=== PATIENT | male | born 1955 | race Caucasian/White ===

== ENCOUNTER 2016-02-20 08:57 | Inpatient (IN) | payer OTHER ==
--- NOTE | 2016-02-15 15:14 | PCM.ANEPRE ---
Anesthesia Pre-Op Review Reason for Review: cardio/ pulm hx Anesthesia Recommendations: Proceed with Procedure Additional Comments 60 yo for total shoulder. Patient has hx of mild COPD, tachycardia induced cardiomyopathy, ZION. Last echo 08/2015 with EF 45%, improved from initial 15% before aflutter controlled. Seen by pulmonology 12/2015, noted to have stable respiratory status on his inhalers. Functional capacity appears adequate, with 6 miles of walking daily in summer, less recently. Patient is on Coumadin, held since 02/12, coreg. Uses 5L O2 at night with his CPAP. Had shoulder surgery here with [facility] and GA apparently without incident. Proceed with DOS eval. Chart Reviewed by: Marc Peters MD Feb 15, 2016 15:14
[2016-02-20] VITALS (11 sets, daily range): BP systolic 120–137; BP diastolic 67–84; PULSE 67–97; RESP 12–20; O2SAT 92–98
[~2016-02-20] VITALS: Ht 177.8 cm; Wt 91.3 kg
[2016-02-20] MEDS: Lactated Ringer's 1,000 ML IV SCH ×4 (05:00→13:44)
[~2016-02-20 08:57] MED LIST: ALBU18HF INH; ALBU2.5V4 INHALATION; APRE30TA2 PO; ASPI-973 PO; ATRINH INH; CARV25TA2 PO; CLOB15CR2 TP; CeFAZolin 2 Gm/50 mL D5W IV Premix IV ONE; DESO59LO TOP; LEVA1.2515 INHALATION; LEVA15HF5 IH; LEVO25TA5 PO; LISI10TA PO; OMEP20TA24 PO; SYMINH INHALATION; WARF4TAB6 PO; WARF6TAB6 PO
[2016-02-20 10:10] LABS: INR 1.15 ratio
--- NOTE | 2016-02-20 10:16 | PCM.HPANE ---
Patient Data Surgeon Admitting Provider: Attending Provider:Yo Escoto MD Primary Care Physician:Norbert Rothman MD Other Provider: Reason for Visit Right Shoulder Arthritis Ht/WT & BMI Height (Feet): 5 Height (Inches): 10 Weight (Kilograms): 91.3 Body Mass Index 28.00 Allergies Coded Allergies: carisoprodol (Unverified Allergy, Severe, rash, 05/16/14) cyclobenzaprine (Unverified Allergy, Severe, RASH, 05/16/14) metaxalone (Unverified Allergy, Severe, RASH, 05/16/14) Past Anesthesia History Anesthesia History: Denies:: Abnormal Airway, Anesthesia Reactions, Difficult Intubation, Malignant Hyperthermia Diabetes History Hx Diabetes?: No MRSA MRSA: No Medications Blood Thinner: Aspirin, Coumadin Hypertension Medication: Yes Home Meds Incl Beta Tory: Yes Date Beta Tory Taken: Feb 20, 2016 Time Beta Tory Taken: 0700 Reported Medications Omeprazole Magnesium (Prilosec Otc)20 Mg Tablet.dr20 Mg PO DAILY #1 PKG Ref 0 02/15/16 Warfarin Sodium 6 Mg Tablet6 Mg PO ,, Thu 30 Days 02/15/16 Warfarin Sodium 4 Mg Tablet4 Mg PO 4xweekly 30 Days Ref 0 02/15/16 Albuterol Sulfate (Ventolin HFA Inhaler)200 Puff/18 Gm Inhaler2 Puff INH Q4 PRN For Wheezing #1 INHALER Ref 0 02/15/16 Budesonide/Formoterol 160-4.5 mcg Inh (Symbicort 160-4.5 mcg Inh)120 Puff Inhaler2 Puff INHALATION BID #1 INHALER Ref 0 02/15/16 Apremilast (Otezla)30 Mg Rzkrrd68 Mg PO BID 02/15/16 Lisinopril 10 Mg Qqxslb37 Mg PO BID 30 Days Ref 0 02/15/16 Levothyroxine 25 Mcg Qbmrjn90 Mcg PO DAILY Ref 0 02/15/16 Desonide (Desonide Lotion)59 Ml Lotion1 Applic TOP BID PRN skin flares #1 BOTTLE Ref 0 02/15/16 Clobetasol Propionate 15 Gm Cream..g.15 Gm TP PRN skin irritation 02/15/16 Carvedilol 25 Mg Gbnquq77 Mg PO BID Ref 0 1/6/17 Ipratropium [place] (Atrovent HFA)200 Puff/12.9 Gm Inhaler2 Puff INH QID #1 INH Ref 0 02/15/16 Aspirin 81 Mg Ancybx31 Mg PO DAILY Ref 0 02/15/16 Albuterol Neb Soln 2.5 Mg/3 Ml Vial.neb2.5 Mg INHALATION TID Ref 0 02/15/16 Discontinued Reported Medications Levalbuterol Tartrate (Xopenex Hfa)15 Gm Hfa.aer.ad2 Puff IH Q6H PRN For Shortness of Breath #1 INH 02/15/16 Levalbuterol 1.25 Mg/3 Ml Vial.neb1.25 Mg INHALATION Q8H 02/15/16 Omeprazole Magnesium (Prilosec Otc)20 Mg Tablet.dr20 Mg PO DAILY #1 PKG Ref 0 05/16/14 Lisinopril 10 Mg Vxwkzk57 Mg PO BID 30 Days Ref 0 05/16/14 Amiodarone 200 Mg Qfuzvb650 Mg PO DAILY 30 Days Ref 0 05/16/14 Furosemide 20 Mg Tab20 Mg PO DAILY 30 Days Ref 0 05/16/14 Discontinued Scripts Doxycycline Monohyd 100 Mg Kbrsxu397 Mg PO BID #10 TABLET Ref 0 Prov:Chet Ugarte MD 05/19/14 Cefdinir 300 Mg Crbtexb300 Mg PO BID #10 CAPSULE Ref 0 Prov:Chet Ugarte MD 05/19/14 Prednisone (PredniSONE)10 Mg Tablet PO DIRECTED #18 TABLET Ref 0 Prednisone 10 mg tablet taper: Take 3 tabs po daily for 3 days; then take 2 tabs po daily for 3 days; then take 1 tab po daily for 3 days. Prov:Chet Ugarte MD 05/19/14 Fluticasone/Salmeterol (Advair 250-50 Diskus)60 Puff/Inh Disk1 Puff IH BID #1 DISK Ref 3 Prov:Chet Ugarte MD 05/19/14 Ipratropium/Albuterol Sulfate (Iprat-Albut 0.5-3(2.5) mg/3 mL Inhalant Soln)3 Ml Ampul.neb3 Ml IH QIDRT #120 NEB Ref 3 Prov:Chet Ugarte MD 05/19/14 Tiotropium [place] (Spiriva)18 Mcg Cap.w.dev18 Mcg IH DAILY #1 PKG Ref 3 Prov:Chet Ugarte MD 04/22/14 Albuterol HFA 8.5 Gm Hfa.aer.ad2 Puff IH Q4 PRN For Wheezing #1 INHALER Ref 3 Prov:Chet Ugarte MD 04/22/14 Aspirin 81 Mg Tablet.dr81 Mg PO DAILY #1 BOTTLE Ref 3 Prov:Chet Ugarte MD 04/22/14 Carvedilol (Coreg)6.25 Mg Tablet6.25 Mg PO BID #60 TABLET Ref 3 Prov:Chet Ugarte MD 04/22/14 Digoxin (Lanoxin)250 Mcg Grotbv867 Mcg PO DAILY #30 TABLET Ref 0 Prov:Chet Ugarte MD 04/22/14 History History of ENT Problems?: No HEENT History: Positive for:: Dysphagia (diff swallowing pills occas since starting Otezla) Denies:: Abnormal Airway Cataracts Difficult Intubation Glaucoma Hearing Problem Sinus Problem TMJ ("kind of" no formal work up) Hx of Heart Problems?: Yes Cardiovascular History: Positive for:: Hypertension Denies:: AICD Cardiac Surgery Chest Pain Congestive Heart Failure Heart Murmur Irregular Heartbeat Pacemaker Peripheral Vascular Thrombophlebitis Hx of Respiratory Problem?: Yes Respiratory History: Positive for:: Asthma Dyspnea (ADAMSON) Oxygen Administration (uses 5L at noc with CPAP) Pneumonia Use of C-PAP Machine Use of Inhalers / NEBS Denies:: COPD Chest Surgery Emphysema Hemoptysis Tuberculosis Hx Neurologic Problems?: No Neurological History: Denies:: CVA Headaches Multiple Sclerosis Parkinson's Disease Seizures TIA Hx of GI Problems?: Yes Gastrointestinal History: Positive for:: Gastroesphageal Reflux (takes prilosec OTC daily) Hepatitis (HX HEP C, treated not current dx) Denies:: Diverticulitis Gall Bladder Disease Gastrointestinal Bleeding Heartburn Hiatal Hernia Rectal Bleeding Hx of Problems?: No Genitourinary History: Denies:: Kidney Stones Urinary Tract Infection Male Hx: Denies:: Prostate Problems Scrotal Mass Testicular Surgery Skin History: Positive for:: History Skin Disorders? (psoriasis, no open plaques in surgical area) Denies:: Pressure Ulcers Hx Musculoskeletal Problems?: Yes Musculoskeletal History: Positive for:: Joint Replacement Musculoskeletal Trauma (right shoulder current admission problem) Osteoarthritis Denies:: Back Injury Fibromyalgia Systemic Lupus Hx of Psycho/Social Problems?: No Psycho Social History: Denies:: Anxiety Hx Depression Hx Surgeries?: Yes (APPY, LEFT ROTATOR CUFF 03/26, left rotator cuff repair) Hx Any Other Health Problems?: Yes Other History: Positive for:: Cancer (BCC head) Thyroid Disease Denies:: Endocrine Disease Hospitalization History Blood Transfusions: Positive for:: Accept Blood Products? Denies:: Blood Transfuse Reaction Blood Transfusions Hx Diabetes: No Hx Alcohol Use: NoHx Substance Use: No Smoking Status: Former Smoker Have You Smoked inLast 12 mo: No Stop/Bang Treated for Sleep Apnea?: No Do You Have a CPAP Machine?: No S-Snoring: Do You Snore Loudly: Yes T-Tired: feel tired, fatigued: Yes O-Obsered: Observed not breath: Yes P-Blood Pressure: treated: Yes B- Body Mass Index > 35 kg/m2: No A- Age over 50: Yes N- Neck Large Circumference: No G- Gender Male: Yes ZION Total Score: 6 ZION Risk Assessment: Low Risk, <3 Yes Risk Assessment Category Category 1A: Patient has history of documented sleep apnea, and HAS NOT received any narcotic, sedative or anesthesia administration during this stay. Category 1B: Patient has history of documented sleep apnea, and HAS received any narcotic , sedative or anesthesia administration during this stay Category 2: Patient has SUSPECTED Obstructive Sleep Apnea, and HAS received any narcotic , sedative or anesthesia administration during this stay. Category 3: Patient has SUSPECTED Obstructive Sleep Apnea and HAS NOT received narcotic, sedative or anesthesia administration during this stay. Category 4: Outpatient in Procedural Areas with known sleep apnea or who screen positive for High Risk via the STOP/BANG questionnaire. Exam Exam Vital Signs Vital Signs Date Time Temp Pulse Resp B/P Pulse Ox O2 Delivery O2 Flow Rate FiO2 02/20/16 09:39 36.1 97 20 128/71 97 Room Air General Appearance: Oriented X3 HEENT/AIRWAY: MP 2 Lungs: Normal Air Movement Heart: Regular Rate/Rhythm Meds/Labs/Diagnostics Admission Meds Current Medications Lactated Ringer's (Lr) 1,000 ml @ 120 mls/hr Q8H20M IV Last administered on t 09:56; Start 02/20/16 at 05:00; Stop 02/20/16 at 13:19 Labs Test 02/20/16 09:51 Plan Impression Patient chart reviewed, patient interviewed and anesthestic plan with risks, benefits, and alternatives discussed, and informed consent obtained. NPO Status: 0700 SIP OF WATER WITH MEDS ASA Physical Status: ASA3 Severe Disease Anesthetic Support Modalities: Arterial Line Anesthetic Plan: GA Bene/Risks/Altern/Consents: Yes HP Complete Prior to Induction: Yes Michi Jim MD Feb 20, 2016 10:16
[2016-02-20] MEDS ORDERED: Lactated Ringer's 500 ML IV PRN (11:21)
[2016-02-20] MEDS ORDERED: Lactated Ringer's 1,000 ML IV SCH (11:21)
[2016-02-20] MEDS ORDERED: Dexamethasone 4 mg/mL Inj IVPUSH PRN (11:25)
[2016-02-20] MEDS ORDERED: Ondansetron 2 mg/mL 2 mL Inj IVPUSH PRN (11:25)
[2016-02-20] MEDS ORDERED: EPHEDrine Sulfate 50 mg/mL Inj IVPUSH PRN (11:25)
[2016-02-20] MEDS ORDERED: MetoCLOpramide 5 mg/mL 2 mL Inj IVPUSH PRN (11:25)
[2016-02-20] MEDS ORDERED: Phenylephrine 10,000 mCg/mL Inj IVPUSH PRN (11:25)
[2016-02-20] MEDS ORDERED: fentaNYL-PF 50 mCg/mL 2 mL Inj IVPUSH PRN (11:25)
[2016-02-20] MEDS ORDERED: Albuterol-Ipratropium 3 mL Inhalation Solution NEB PRN (11:25)
[2016-02-20] MEDS ORDERED: Bacitracin 50,000 unit Inj IRRIGATION ONE (11:46)
[2016-02-20] MEDS ORDERED: Hip/Knee Infiltration Cocktail IM ONE ×7 (11:49)
[2016-02-20] MEDS ORDERED: Gentamicin 40 mg/mL 2 mL Inj INJ ONE (13:25)
[2016-02-20] MEDS ORDERED: Bupivacaine Liposome 1.3% 20 mL Inj INFILTRATE ONE (13:26)
[2016-02-20] MEDS ORDERED: Bupivacaine Liposome 1.3% 20 mL Inj ONE (13:28)
[2016-02-20] MEDS ORDERED: Ondansetron 2 mg/mL 2 mL Inj ONE (13:44)
[2016-02-20] MEDS ORDERED: Rocuronium 10 mg/mL 5 mL Inj ONE (13:44)
[2016-02-20] MEDS ORDERED: EPHEDrine/NS 5 mg/mL 5 mL Syringe ONE (13:44)
[2016-02-20] MEDS ORDERED: Propofol 10,000 mCg/mL 20 mL Inj ONE (13:44)
[2016-02-20] MEDS ORDERED: Albuterol HFA 60 Puff 8 Gm Inhaler INHALATION ONE (13:44)
[2016-02-20] MEDS ORDERED: Ketamine 10 mg/mL 20 mL Inj ONE (13:44)
[2016-02-20] MEDS ORDERED: MetoCLOpramide 5 mg/mL 2 mL Inj ONE (13:44)
[2016-02-20] MEDS ORDERED: Neostigmine 1 mg/mL 5 mL Inj ONE (13:44)
[2016-02-20] MEDS ORDERED: Glycopyrrolate 0.2 mg/mL 5 mL Inj ONE (13:44)
[2016-02-20] MEDS ORDERED: Dexamethasone 4 mg/mL Inj ONE (13:44)
[2016-02-20] MEDS ORDERED: fentaNYL-PF 50 mCg/mL 2 mL Inj ONE (13:44)
[2016-02-20] MEDS ORDERED: Phenylephrine/NS 100 mCg/mL 10 mL Syringe IVPUSH ONE (13:44)
[2016-02-20] MEDS ORDERED: Polyethylene Glycol (PEG) 17 Gm Powder PO PRN (13:45)
[2016-02-20] MEDS ORDERED: Magnesium Hydroxide 10 mL Oral Concentration PO PRN (13:45)
[2016-02-20] MEDS ORDERED: Sodium Biphos-Phos 133 mL Enema RECTAL PRN (13:45)
[2016-02-20] MEDS ORDERED: Ketorolac 15 mg/mL Inj IVPUSH PRN (13:45)
--- NOTE | 2016-02-20 14:00 | PCM.ORTHOP ---
Orthopedic Operative Report Date of Service: Feb 20, 2016 Pre Operative Diagnosis Right shoulder pseudoparalysis, osteoarthritis Post Operative Diagnosis Same Procedure Right shoulder reverse total shoulder arthroplasty, biceps tenodesis Surgeon Surgeon: Yo Escoto MD Assistants: Dayo Rai Indication for Procedure Right shoulder arthritis, pseudoparalysis Findings Moderate glenohumeral joint arthritis, massive rotator cuff tear Details of Procedure Implant:[employer] Reverse fracture system: 11 CaP coated humeral stem, medium glenoid baseplate, 39+6 humeral insert, size medium 39 mm glenosphere, central non-locking screw size 6.5 x 30 mm, peripheral locking screw 36 mm, peripheral locking screw 36 mm Patient Status: Patient was extubated and taken to recovery room in stable condition. Indications: Dexter Vuong is a 60-year-old right hand dominant s/p shoulder pain with pseudoparalysis and glenohumeral arthritis. The patient was offered conservative treatments versus surgical intervention given the severity of the injury and the patient opted for surgery. A clear explanation was given to the patient regarding the condition present, and the available conservative and surgical options. It was emphasized that the risks and benefits of surgery include but are not limited to infection, wound healing problems, damage to adjacent structures such as nerves, blood vessels and tendons, intermediate project manager disability and pain, arthritis, hypersensitivity, deep vein thrombosis, pulmonary embolism, broken hardware, failure of surgery, need for further procedures at time of surgery or later, cast related problems, loss of limb or life. The patient was given an explanation and the patient voiced understanding of what to expect after the procedure or surgery, the limitations in activities of daily living, the likely duration for post operative recovery and the instructions that are to be followed. At the end the patient was invited to seek clarification or ask further questions but there were none. The patient voiced understanding of the entire consultation. Description of Procedure: Patient was taken to operating room and transferred to operating table in supine position. Time out was performed with both anesthesia and orthopaedics faculty present to confirm details of case to be performed. After time out performed, patient placed under general anesthesia and endotracheal tube secured into place. Once endotracheal tube secured, the patient was placed into the modified beach-chair position at about 40 degrees of flexion. Patient position was again checked to ensure all bony prominences adequately padded. The right arm was prepped and draped in the usual sterile fashion to the level of the neck. A standard deltopectoral incision was made beginning immediately above the coracoid process and extending distally and laterally. The deltoid muscle was split through the interval being carefully not to release any deltoid along the clavicle or humerus. The proximal one-third of the pectoralis major muscle was incised off the humerus for better exposure. The supraspinatus and infraspinatus muscles were intact and still attached to the fractured greater tuberosity. The subscapularis was intact and also still attached to the fractured lesser tiberosity. It was incised through the tendinous portion just medial to the lesser tuberosity and tagged with 2-0 Fiberwire. The arm was externally rotated to expose the humeral head while the anterior humeral circumflex vessels ("3 sisters") were identified, ligated and then cut protecting the axillary nerve throughout inferior and medial to the vessels. The long head of the biceps was identified along the bicipital groove, incised at its origin and tagged for later tenodesis to the pectoralis major A balloon pilot hole was then made with a 4 mm drill through the humeral head along the axis of the humeral shaft just lateral to the head's articular surface and just posterior to the bicipital groove. The 6 mm trochar pointed reamer was then inserted with continued circumferential reaming in 1 mm increments until light cortical contact was achieved with the 11 mm reamer. The intramedullary resection guide was assembled and the version control evelin was placed to allow for 30 degrees retroversion. The neck cut was verified with a bat wing. Two threaded Steinmann pins were placed in the resection guide to secure the block to bone and the reamer and guide boom were removed prior to resecting the humeral head with the oscillating saw. We started broaching with the 8 mm broach and ended with the 11 mm broach which solidly fit in the canal and fully seated on the humerus. The broach cover was then used to protect the humerus while attention was turned to the glenoid. Any remaining labrum was removed from the glenoid along with surrounding osteophytes. The glenoid sizer was centered on the glenoid and a 3.2 mm Steinmann pin was inserted with a 10 degree inferior tilt with solid bone purchase. The glenoid was then reamed with the cannulated base plate reamer over the top of the Steinmann pin until a small bone shelf was evident circumferentially. The cannulated trial glenoid baseplate was placed and fully seated. The glenoid baseplate implant was impacted and fully seated. The 6.5 mm central screw was then inserted following removal of the Steinmann with good compression. The four surrounding peripheral screws were then drilled with a 2.7 mm drill through the threaded locking guides and then placed. The glenosphere trial was placed and tested with a good fit. The 39 mm glenosphere implant was then tamped in place with appropriate offset. The standard humeral tray/bearing were placed and a trial reduction was performed. The patient achieved 80 degrees of external/internal rotation, 110 degrees of abduction, 45 degrees extension and 120 degrees of forward flexion with complete stability. The trail components were removed and the wound was copiously irrigated with 3 liters of normal saline. The stem was inserted followed by impaction of the humeral tray/bearing. The implant was reduced and once again range of motion was found to be 80 degrees of external/internal rotation, 110 degrees of abduction, 45 degrees extension and 120 degrees of forward flexion with complete stability. The wound was again irrigated. The subscapularis was repaired with drill holes in the humerus prior to implantation of the stem with #2 Fiberwire through previously made bone tunnels. The long head of biceps was tenodesed to the pectoralis major. The deltoid interval was closed with 0 vicryl followed by 2-0 vicryl subcutaneous closure and then monocryl stitches for the skin. A drain was placed as well as transexamic acid and a local anesthetic cocktail into the skin. Sterile dressings were applied along with a shoulder immobilizer and abduction pillow. The patient was then awoken from anesthesia and extubated, his neurovascular status was intact when checked in PACU. Pt tolerated procedure well and there was no complications. Grafts, Implants: Grafts-See Implant Record, Implants-See Implant Record Complications There were no periprocedural complications identified. Condition Stable Anesthetic Administered: GA Catheters: None Output, Estimated Blood Loss: 200 Blood Admin during surgery: No Surgical Cast or Splint: Shoulder Immobilizer Surgical Specimen Removed: No Specimen sent to Pathology: No copies to: Yo Escoto MD, Christopher L MD Feb 20, 2016 14:00
[2016-02-20] MEDS ORDERED: fentaNYL-PF 50 mCg/mL 2 mL Inj IVPUSH ONE (14:25)
[2016-02-20] MEDS: HYDROmorphone 1 mg/mL Inj IVPUSH PRN ×2 (14:31→14:59)
--- NOTE | 2016-02-20 15:21 | DRSVH ---
PROCEDURE: X-RAY RIGHT SHOULDER, MINIMUM TWO VIEWS ([id number]) INDICATIONS: s/p right reverse TSA TECHNIQUE: 3 views of the shoulder were acquired. COMPARISON: [facility], CR, XR SHOULDER 4 VW RT, 07/05/2015, 8:19. FINDINGS: Bones: Postsurgical changes compatible with right shoulder reverse total arthroplasty noted. No suspi cious bony lesions. Visualized ribs appear intact. Soft tissues: No suspicious soft tissue calcifications. IMPRESSION: Expected postsurgical change for right shoulder reverse total arthroplasty. Dictated by: Saima Garcia MD, PhD on 02/20/2016 at 15:19 Approved by: Saima Garcia MD, PhD on 02/20/2016 at 15:19
[2016-02-20] MEDS: CeFAZolin Inj 2 GM in IV Premix 1 EACH IV SCH (16:26)
[2016-02-20] MEDS ORDERED: Gentamicin 40 mg/mL 2 mL Inj IRRIGATION ONE (16:33)
--- NOTE | 2016-02-20 16:55 | PCM.ANEP1 ---
Post Anesthesia Phase 1 PACU Phase 1 Assessment Date of Service: Feb 20, 2016 Vital Signs Vital Signs Date Time Temp Pulse Resp B/P Pulse Ox O2 Delivery O2 Flow Rate FiO2 02/20/16 16:06 Supplement Oxygen 02/20/16 15:55 36.8 68 20 128/81 95 Nasal Cannula 1.00 02/20/16 15:20 80 12 121/71 94 Nasal Cannula 1 02/20/16 15:05 72 12 132/77 93 Nasal Cannula 1 02/20/16 14:50 36.7 68 15 125/74 94 Nasal Cannula 1 02/20/16 14:35 71 13 127/71 92 Room Air 02/20/16 14:20 70 13 137/77 98 Simple Mask 9 02/20/16 14:15 68 15 120/84 98 Simple Mask 9 02/20/16 14:10 70 15 125/71 98 Simple Mask 9 02/20/16 14:07 36.4 67 16 127/74 98 Simple Mask 9 02/20/16 09:39 36.1 97 20 128/71 97 Room Air Anesthetic Administered: GA Level of Alertness: Awake, talking BRADY's with Equal Strength: Yes Pain: Yes Lungs: Normal Air Movement Michi Jim MD Feb 20, 2016 16:55
--- NOTE | 2016-02-20 16:55 | PCM.ANEP2 ---
Post Anesthesia Evaluation ASA/CMS Post Anesthesia VS in Patient's Normal Range?: Yes Resp Stable; Airway Patent?: Yes CV Function & Hydration Stable: Yes Mental Status Recovered?: Yes Pain control Satisfactory?: Yes N/V Control Satisfactory?: Yes Michi Jim MD Feb 20, 2016 16:55
--- NOTE | 2016-02-20 17:35 | NUR ---
POSTOP Pt to floor in bed. Able to talk and answer questions. Taking a full liquid diet, with advance to general in am. Rt arm wrapped in bulky dressing and in sling. Pain rated at a 6/10. Cpap checked by RT with intent to bleed 5L oxygen in while sleeping. Scd's on. Using urinal.
[2016-02-20] MEDS: Senna-Docusate 8.6-50 mg Tablet PO SCH (20:24)
[2016-02-20] MEDS: HYDROcodone-APAP 5-325 mg Tablet PO PRN (20:24)
[2016-02-21 01:07] VITALS: BP 134/70; PULSE 95; RESP 20; O2SAT 95
[2016-02-21] MEDS: CeFAZolin Inj 2 GM in IV Premix 1 EACH IV SCH (01:07)
[2016-02-21] MEDS: HYDROcodone-APAP 5-325 mg Tablet PO PRN ×3 (01:09→09:10)
[2016-02-21] MEDS: Lactated Ringer's 1,000 ML IV SCH (01:30)
[2016-02-21 04:58] VITALS: BP 124/80; PULSE 87; RESP 18; O2SAT 97
[2016-02-21] MEDS ORDERED: Bupivacaine Liposome 1.3% 20 mL Inj INFILTRATE ONE (06:00)
[2016-02-21 06:42] LABS: BASOPHILS % (AUTO) 0.1 % (0-3); EOSINOPHILS % (AUTO) 0 % (0-5); MONOCYTES % (AUTO) 16.2 % (4-12); Mean Corpuscular Hemoglobin 33.2 pg (27.0-35.0); Mean Corpuscular Volume 96.6 fL (81-100); NEUTROPHILS % (AUTO) 74.8 % (40-74); Platelet Count 243 bil/L (150-400)
--- NOTE | 2016-02-21 06:46 | NUR ---
Pain Initially denied pain but later c/o 8/10 shoulder pain. Prn norco and ice provided and effective. Currently resting without any complaints.
--- NOTE | 2016-02-21 07:12 | NUR ---
TWIN TWIN output 260ml from arrival to floor until midnight. Per provider communication order notified. TWIN clamped for an hour and unclamped with another 45ml output noted remainder of shift.
[2016-02-21] MEDS: Senna-Docusate 8.6-50 mg Tablet PO SCH (09:09)
[2016-02-21] MEDS ORDERED: OTEZLA 30 MG PO SCH (09:57)
[2016-02-21] MEDS ORDERED: Pantoprazole 40 mg ER24 Tablet PO SCH (09:58)
[2016-02-21] MEDS ORDERED: Albuterol 2.5 mg/3 mL Inhalation Solution NEB PRN (10:00)
--- NOTE | 2016-02-21 10:18 | PCM.PNORTH ---
Subjective Date of Service: Feb 21, 2016 Visit Information: Reason for Visit Right Shoulder Arthritis Surgery/Surgery Date R TS 02/20/16 Post-Op Day # 1 Date of Admission: Feb 20, 2016 at 13:43 Hospital Day # Subjective Patient states he is having discomfort but it is tolerable. Patient states he has "been through this before" and understands the process. and patient had adequate time to ask questions and all concerns were addressed. Patient's home med list has been entered this morning. Postop General: No Complaints, No Shortness of Breath, No Chest Pain Pain Management: PO, IV Push Objective Exam Objective Patient laying in bed, sling is in place. Vital Signs and I/O Vital Sign - Last Date Time Temp Pulse Resp B/P Pulse Ox O2 Delivery O2 Flow Rate FiO2 02/21/16 07:45 Supplement Oxygen 02/21/16 04:58 37.0 87 18 124/80 97 5.00 Intake and Output 02/20/16 02/20/16 02/21/16 Cumulative From/Thru 15:00 23:00 07:00 02/15/16 11:05 - 02/21/16 06:14 Intake Total 800 ml 1152 ml 2008 ml 3960 ml Output Total 350 ml 290 ml 1855 ml 2495 ml Balance 450 ml 862 ml 153 ml 1465 ml Intake Oral 1000 ml 1000 ml 2000 ml IV Total 800 ml 152 ml 1008 ml 1960 ml Output Urine Total 200 ml 1650 ml 1850 ml Drainage Total 90 ml 205 ml 295 ml Estimated Blood Loss 350 ml 350 ml # Voids 1 1 # Bowel Movements 0 0 Lab & Micro Results Laboratory Tests Test 02/21/16 06:00 White Blood Count 16.8th/mm3 (3.8-10.1) Red Blood Count 3.19mil/mm3 (4.40-5.80) Hemoglobin 10.6g/dL (13.8-17.2) Hematocrit 30.8% (41.0-50.0) Mean Corpuscular Volume 96.6fL (81-100) Mean Corpuscular Hemoglobin 33.2pg (27.0-35.0) Mean Corpuscular Hemoglobin Concent 34.4% (32.0-37.0) Red Cell Distribution Width 11.8% (12.3-15.4) Platelet Count 243bil/L (150-400) Neutrophils (%) (Auto) 74.8% (40-74) Lymphocytes (%) (Auto) 8.7% (14-46) Monocytes (%) (Auto) 16.2% (4-12) Eosinophils (%) (Auto) 0% (0-5) Basophils (%) (Auto) 0.1% (0-3) Result Diagram: 02/21/16 0600 General Appearance: Alert, Oriented X3, Cooperative Extremities: Distal Pulses Palpable, Warm, No Compartment Syndrom Noted Postop Sensory Motor: Distal Motor Intact, Movement in Fingers, Distal Sensation Intact, NVI Distally SURGICAL WOUND : Wound Location/Description Perioperative dressings clean dry and intact. Drain was removed. Sling in place. Drain Location Body Site: Shoulder Activity: Activity per PT (ROM to elbow and wrist only, no ROM to shoulder) Catheters: None Assessment & Plan Impression Postoperative day #1 right reverse total shoulder arthroplasty Problems: Plan Weightbearing: Patient is nonweightbearing with the right upper extremity. Patient will remain in sling at all times except when doing range of motion to the elbow. DVT prophylaxis: Patient will be bridging with Lovenox 40 mg and his usual dose of warfarin Physical therapy for transfers, progressive ambulation, strengthening Wound care: Perioperative dressing will remain in place for 2 weeks unless saturated. Please provide patient with extra dressings to take home in case dressings become soiled. Analgesia: Patient was given a prescription for [place] 5/325. Discharge plan: Discharge home today. Follow-up plan: In 2 weeks at [facility] with BETTY for wound check and at [address] Escoto with x-rays VTE Prophylaxis: Sub-Q Enoxaparin Jillian Welsh PA-C Feb 21, 2016 10:18
[2016-02-21] MEDS ORDERED: LOV40 SUBQ (10:23)
[2016-02-21] MEDS ORDERED: HYDR-4003 PO (10:23)
[2016-02-21] MEDS ORDERED: DOCU-41 PO (10:23)
--- NOTE | 2016-02-21 10:25 | PCM.DIORTH ---
Ortho Discharge Instruction Date of Service: Feb 21, 2016 Dates of Hospitalization Date of Hospital Admission Feb 20, 2016 at 13:43 Providers Admitting Physician: Yo Escoto MD Primary Care Physician: Norbert Rothman MD Attending Physician: Yo Escoto MD Diet Discharge Diet: No restrictions Activity Discharge Activity-General: Try not to overdue, Be up and about, Ice incision 3 -5 time/day for 20min Right Lower Extremity: Non-weight Bearing Dressing and Incisional Care Discharge Dressing Care: Keep dressing clean, dry & intact Discharge Hygiene: May shower (Cover dressings, do not get them wet), DO NOT soak incision under water Additional Instructions Discharge Instructions Weightbearing: Patient is nonweightbearing with the right upper extremity. Patient will remain in sling at all times except when doing range of motion to the elbow. DVT prophylaxis: Patient will be bridging with Lovenox 40 mg and his usual dose of warfarin Physical therapy for transfers, progressive ambulation, strengthening Wound care: Perioperative dressing will remain in place for 2 weeks unless saturated. You will receive extra dressings to take home in case dressings become soiled. Shower instructions: Keep dressing covered while bathing. Do not get dressing wet. If dressing becomes wet, immediately change it. Analgesia: Patient was given a prescription for [place] 5/325. Follow-up plan: In 2 weeks at [facility] with BETTY for wound check and at [address] Escoto with x-rays Jillian Welsh PA-C Feb 21, 2016 10:25
--- NOTE | 2016-02-21 10:29 | PCM.DC.ORT ---
Discharge Summary Date of Service: Feb 21, 2016 Date of Hospital Admission: Feb 20, 2016 at 13:43 Date of Surgery: Feb 20, 2016 Date of Discharge: Feb 21, 2016 Reason for Hospitalization: Right shoulder arthritis Procedures Performed: Right reverse total shoulder arthroplasty Hospital Course: The patient was admitted to the hospital on 02/20/2016 and underwent the above procedure. Antibiotic prophylaxis consisting of Ancef and vancomycin. The surgeon was Dr. Escoto. Patient tolerated the procedure well and was transferred to recovery room in stable condition. TWIN drain was discontinued on postop day 1. Patient had occupational therapy to work on ambulation and transfers. Nonweightbearing. Pain was managed with Dilaudid, Percocet, Vistaril, Toradol. DVT prophylaxis: Lovenox 40 mg subcutaneous bridging with warfarin and SCDs. Hospital course was uncomplicated. Patient was able to perform adequately enough to be discharged home on postop day 1. Follow-up: at [facility] 2 weeks postop for wound check and at [address] Escoto with x-ray. Diagnosis at Time of Discharge Status post right reverse total shoulder arthroplasty Problems: Disposition: Stable, discharged to home Discharge Instructions: Weightbearing: Patient is nonweightbearing with the right upper extremity. Patient will remain in sling at all times except when doing range of motion to the elbow. DVT prophylaxis: Patient will be bridging with Lovenox 40 mg and his usual dose of warfarin Physical therapy for transfers, progressive ambulation, strengthening Wound care: Perioperative dressing will remain in place for 2 weeks unless saturated. You will receive extra dressings to take home in case dressings become soiled. Shower instructions: Keep dressing covered while bathing. Do not get dressing wet. If dressing becomes wet, immediately change it. Analgesia: Patient was given a prescription for Kulm 5/325. Follow-up plan: In 2 weeks at [facility] with PA for wound check and at [address] Escoto with x-rays Albuterol Neb Soln (Albuterol Neb Soln) 2.5 Mg/3 Ml Vial.neb 2.5 MG INHALATION TID Albuterol Sulfate (Ventolin HFA Inhaler) 200 Puff/18 Gm Inhaler 2 PUFF INH Q4 PRN PRN For Wheezing Apremilast (Otezla) 30 Mg Tablet 30 MG PO BID Budesonide/Formoterol 160-4.5 mcg Inh (Symbicort 160-4.5 mcg Inh) 120 Puff Inhaler 2 PUFF INHALATION BID Carvedilol (Carvedilol) 25 Mg Tablet 25 MG PO BID Clobetasol Propionate (Clobetasol Propionate) 15 Gm Cream..g. 15 GM TP PRN skin irritation Desonide (Desonide Lotion) 59 Ml Lotion 1 APPLIC TOP BID PRN PRN skin flares Docusate Sodium (Colace) 100 Mg Capsule 100 MG PO BID PRN PRN For Constipation Enoxaparin (Lovenox) 40 Mg/0.4 Ml Syringe 40 MG SUBQ DAILY Hydrocodone-Acetaminophen 5-325 mg (Hydrocodone-Acetaminophen 5-325 mg) 1 Each Tablet 1 TABLET PO Q6H PRN PRN For Pain Ipratropium [place] (Atrovent HFA) 200 Puff/12.9 Gm Inhaler 2 PUFF INH QID Levothyroxine (Levothyroxine) 25 Mcg Tablet 25 MCG PO DAILY Lisinopril (Lisinopril) 10 Mg Tablet 10 MG PO BID Omeprazole Magnesium (Prilosec Otc) 20 Mg Tablet.dr 20 MG PO DAILY Warfarin Sodium (Warfarin Sodium) 4 Mg Tablet 4 MG PO 4xweekly Warfarin Sodium (Warfarin Sodium) 6 Mg Tablet 6 MG PO Delgado Rebolledo Sat Shepherd, Brittany N PA-C Feb 21, 2016 10:29
--- NOTE | 2016-02-21 11:04 | NUR ---
Social Work Discharge SW acknowledged order for discharge. SW met with patient at bedside to discuss discharge plan. Patient is a 60 year old male admitted on 02/20/16 for right sholder arthritis. Patient payer as [facility]. Patient PCP as MD Rothman. Patient states residing with in [facility]. Patient states pharmacy of choice as [facility]. Patient has no HHC, SNF, or AD at this time. Patient denied completion of AD. Patient has a walker, CPAP, and nebulizer at home. Patient states being independent with needs and to provide transport home. SW spoke to therapist who states home, no needs. Patient and denied need for HHC services at this time. SW to follow. PLAN: Home with , via POV. No anticipated discharge needs Tiffany WILL
--- NOTE | 2016-02-21 12:06 | NUR ---
Evaluation completed. Please go to "Notes" then click on "Assessments and Notes" (bottom left corner of screen). Then select appropriate discipline tab on top of screen.
--- NOTE | 2016-02-21 14:24 | NUR ---
Discharge Orders for discharge received. The patient was made aware of the plan to discharge and was agreeable to go. The patient was given his scripts and information regarding his diagnosis and treatment, signs and symptoms to be aware of, medications, follow up directions and instructions regarding his dressing. The patient signified understanding of this information and his asymptomatic IV was removed intact. The patient gathered his belongings and was dressed in his own clothing. The patient then walked to the main entrance and entered a private vehicle. At the time of discharge the patient was alert and oriented, with no complaints of out of control pain or nausea. Surgical dressing clean, dry and intact.
[2016-02-21] MEDS ORDERED: Albuterol 2.5 mg/3 mL Inhalation Solution NEB SCH (14:30)
== END 2016-02-21 12:28 | disposition home or self-care (01) | DRG 315 ==
LOC: SAS 08:57 → OSC 13:43
PROVIDERS: ADMIT Orthopaedic Surgery; ATTEND Orthopaedic Surgery
PROC: 0RRJ00Z Replacement of Right Shoulder Joint with Reverse Ball and Socket Synthetic Substitute, Open Approach (ICD-10-PCS; principal; 2016-02-20 11:15)
DX: M75.121 Complete rotator cuff tear or rupture of right shoulder, not specified as traumatic (principal); I42.9 Cardiomyopathy, unspecified; Z99.81 Dependence on supplemental oxygen; M19.011 Primary osteoarthritis, right shoulder; M75.21 Bicipital tendinitis, right shoulder; Z79.51 Long term (current) use of inhaled steroids; J44.9 Chronic obstructive pulmonary disease, unspecified; F17.210 Nicotine dependence, cigarettes, uncomplicated; K21.9 Gastro-esophageal reflux disease without esophagitis; I10 Essential (primary) hypertension

== ENCOUNTER 2016-03-08 16:34 | Emergency (ER) | payer OTHER ==
[~2016-03-08] VITALS: Ht 177.8 cm; Wt 93.2 kg
[~2016-03-08 16:34] MED LIST changes: -ASPI-973 PO; -CeFAZolin 2 Gm/50 mL D5W IV Premix IV ONE; +DOCU-41 PO; +HYDR-4003 PO; -LEVA1.2515 INHALATION; -LEVA15HF5 IH; +LOV40 SUBQ
[2016-03-08 16:40] VITALS: BP 147/81; PULSE 100; RESP 20; O2SAT 93
--- NOTE | 2016-03-08 17:15 | ED.REPORT ---
HPI-General Illness Date of Service Mar 08, 2016 ED Provider: Ye Albert MD Pt is a 60 year old male with a history of CHF and a-fib (controlled with Warfarin) who presents to the ED With concerns for a full rash that started following a shoulder surgery that he had 2 weeks ago. He reports that when he had his post-surgical follow up appointment, he was told that he was allergic to the tape that they had used. He has not used the same post surgical tape, but has not had an alleviation of his symptom. Pt was placed on a 5 day course of Prednisone, ending tomorrow. He reports slight shortness of breath, itching, lower extremity swelling and difficulty sleeping. Pt denies any fevers, chills, chest pain, or any other symptoms. Nursing Notes Stated Complaint: DIFFICULTY BREATHING/ SWELLING Chief Complaint: Respiratory Distress Nursing Notes Reviewed: Yes Allergies: Coded Allergies: carisoprodol (Unverified Allergy, Severe, rash, 05/16/14) cyclobenzaprine (Unverified Allergy, Severe, RASH, 05/16/14) metaxalone (Unverified Allergy, Severe, RASH, 05/16/14) TAPE (Verified Allergy, Unknown, hives, 03/08/16) Scheduled Albuterol Neb Soln (Albuterol Neb Soln) 2.5 Mg/3 Ml Vial.neb 2.5 MG INHALATION TID Apremilast (Otezla) 30 Mg Tablet 30 MG PO BID Budesonide/Formoterol 160-4.5 mcg Inh (Symbicort 160-4.5 mcg Inh) 120 Puff Inhaler 2 PUFF INHALATION BID Carvedilol (Carvedilol) 25 Mg Tablet 25 MG PO BID Enoxaparin (Lovenox) 40 Mg/0.4 Ml Syringe 40 MG SUBQ DAILY Ipratropium [place] (Atrovent HFA) 200 Puff/12.9 Gm Inhaler 2 PUFF INH QID Levothyroxine (Levothyroxine) 25 Mcg Tablet 25 MCG PO DAILY Lisinopril (Lisinopril) 10 Mg Tablet 10 MG PO BID Omeprazole Magnesium (Prilosec Otc) 20 Mg Tablet.dr 20 MG PO DAILY Warfarin Sodium (Warfarin Sodium) 4 Mg Tablet 4 MG PO 4xweekly Warfarin Sodium (Warfarin Sodium) 6 Mg Tablet 6 MG PO ,, Thu Scheduled PRN Albuterol Sulfate (Ventolin HFA Inhaler) 200 Puff/18 Gm Inhaler 2 PUFF INH Q4 PRN PRN For Wheezing Clobetasol Propionate (Clobetasol Propionate) 15 Gm Cream..g. 15 GM TP PRN skin irritation Desonide (Desonide Lotion) 59 Ml Lotion 1 APPLIC TOP BID PRN PRN skin flares Docusate Sodium (Colace) 100 Mg Capsule 100 MG PO BID PRN PRN For Constipation Hydrocodone-Acetaminophen 5-325 mg (Hydrocodone-Acetaminophen 5-325 mg) 1 Each Tablet 1 TABLET PO Q6H PRN PRN For Pain General Time Seen by MD: 16:49 Chief Complaint Rash Hx Obtained From: Patient Arrived By: Walk-in Sudden in Onset?: Yes Onset Occurred: More than a week ago... (2 weeks) Symptom Duration: Since onset Severity: Current: No pain currently Severity: Maximum: No pain Similar Sx Previous: Yes Past Medical History Past Medical History Sleep apnea Hypertension Hep C Scrotal mass Endocrine disease Thyroid disease Reports: Asthma, COPD, Congestive heart failure Past Surgical History Left shoulder surgery Testicular surgery Appendectomy Family History Noncontributory Smoking History Former Smoker Social History Alcohol Use: Denies alcohol use Drug Use: Denies drug use Other Social History: Local resident Ambulatory Status Independent Review of Systems Full Review of Systems Constitutional: Denies: Chills, Fever, Malaise, Weakness - generalized Respiratory: Reports: Shortness of breath, Denies: Non-productive cough, Wheezing Cardiovascular: Denies: Chest pain, Syncope GI: Denies: Abdominal pain, Constipation, Diarrhea, Nausea, Vomiting Male: Denies Dysuria, Denies Urinary frequency, Denies Urinary urgency Musculoskeletal: Denies: Back pain, Neck pain Neurologic: Denies: Change LOC, Dizziness, Headache, Syncope Complete sys rev & neg: except as marked. Physical Exam Vital Signs Vital Signs Date Time Temp Pulse Resp B/P Pulse Ox O2 Delivery O2 Flow Rate FiO2 03/08/16 16:40 36.4 100 20 147/81 93 Room Air Initial VS: Reviewed Head / Eyes: Atraumatic, Normocephalic, PERRL ENT: Mucous membranes moist, Conjunctiva normal, No scleral icterus Neck: Supple, Non-tender, Full range of motion Cardiovascular: Regular rate & rhythm, Heart sounds normal, Intact distal pulses Abdomen / GI: Soft, Non-tender, No guarding, No rebound, No distention Neurologic: Alert, Oriented, Nonfocal Psychiatric: Mood/affect normal, Behavior normal, Normal thought content Respiratory / Chest: Breath sounds = bilat, No respiratory distress, No rales Scattered wheezes throughout Good air movement Skin: Warm, Dry Scattered urticaria Interpretation & Diagnostics Lab Results Interpretation Result Diagram: 03/08/16 1736 03/08/16 1736 Test 03/08/16 17:36 03/08/16 17:48 White Blood Count 13.5th/mm3 (3.8-10.1) Red Blood Count 3.54mil/mm3 (4.40-5.80) Hemoglobin 11.6g/dL (13.8-17.2) Hematocrit 34.3% (41.0-50.0) Mean Corpuscular Volume 96.9fL (81-100) Mean Corpuscular Hemoglobin 32.8pg (27.0-35.0) Mean Corpuscular Hemoglobin Concent 33.8% (32.0-37.0) Red Cell Distribution Width 12.3% (12.3-15.4) Platelet Count 562bil/L (150-400) Neutrophils (%) (Auto) 76.9% (40-74) Lymphocytes (%) (Auto) 8.6% (14-46) Monocytes (%) (Auto) 13.8% (4-12) Eosinophils (%) (Auto) 0% (0-5) Basophils (%) (Auto) 0.1% (0-3) Prothrombin Time 33.2sec (8.1-12.5) Prothromb Time International Ratio 3.03ratio Sodium Level 136mEq/L (134-144) Potassium Level 4.9mEq/L (3.5-5.2) Chloride Level 97mEq/L (97-108) Carbon Dioxide Level 26mmol/L (18-29) Blood Urea Nitrogen 15mg/dL (6-24) Creatinine 0.80mg/dL (0.76-1.27) Estimat Glomerular Filtration Rate 105mL/min (>59) Glucose Level 141mg/dL (60-99) Calcium Level 9.3mg/dL (8.5-10.1) Magnesium Level 2.1mg/dL (1.6-2.6) Total Bilirubin 0.2mg/dL (0.0-1.2) Aspartate Amino Transf (AST/SGOT) 17U/L (0-50) Alanine Aminotransferase (ALT/SGPT) 25U/L (0-44) Alkaline Phosphatase 65U/L (25-160) Troponin T < 0.010ug/L (0.0-0.011) Pro-B-Type Natriuretic Peptide 203.4pg/mL (0-210) Total Protein 7.0g/dL (6.4-8.4) Albumin 4.2g/dL (3.4-5.0) Hold Zelaya Top Tube Received (Received) ECG Interpretation ECG Interpretation: SR - 94 Time: 17:38 Normal ECG Interpretation: Normal axis, Normal intervals X-Ray Chest Interpretation Chest Xray Interpretation: IMPRESSION: No acute disease. Dictated by: Oli Bull M.D. on 03/08/2016 at 17:36 Interpretation / Wet Read by: Interpret - Radiologist Re-Eval/Medical Decision Med Decision/Clinical Course 60-year-old male with several days of urticaria. Not responding well to steroids or nonsedating antihistamines. Using Benadryl only occasionally as needed. Also wheezy. There is an established history of bronchospasm and is using albuterol, Atrovent and inhaled steroids. A concern for congestive heart failure however the data does not support that. It is not clear what precipitated his urticaria. With urticaria and bronchospasm I considered anaphylaxis. The prolonged course and his prior history of bronchospasm argue against this. I was unable to identify any medication that seemed likely to be a precipitant and therefore did not make any changes in his medications. He was on a prednisone pulse with his last dose today. We will taper his prednisone over the next 9 days. Source of Hx: Old records Time of Eval: 19:54 Re-Evaluation/Progress Note: Pt is rechecked and informed of his lab results and the plan to discharge him at this time. He understands and agrees, all questions are addressed. Counseled Regarding: Diagnosis, Lab results, Need for follow-up, When/why to return to ED Discharge & Departure Primary Impression: Urticaria Additional Impression: Bronchospasm Disposition: Home Discharge Condition All VS Reviewed: Yes Condition: Stable Patient Instructions: Urticaria (ED) Additional Instructions: Emergency Department evaluation included interview, examination, labs and chest x-ray. Prior records were reviewed. Rash does appear to be urticarial, most often this is related to an acute allergic response however we are unable to identify a precipitant today. Prednisone will be tapered. Take that as prescribed. Benadryl as needed for rash and itch. Continue other previous home medications as previous. Follow up with dermatology and primary care, call for an appointment soon. Return to emergency department for increasing shortness of breath feeling faint frequent nausea and vomiting other new concerning symptoms. Referrals: Norbert Rothman MD (PCP) Chetan Attestation Portions of this note were transcribed by Cherise Fletcher. I, Dr. Albert personally performed the history, physical exam and medical decision-making; I reviewed and confirmed the accuracy of the information in the transcribed note. Signed by: Chetan Knox, 03/08/20162006 copies to: Norbert Rothman MD, Donald L MD Mar 08, 2016 17:15 JJ FLETCHER Mar 08, 2016 17:18
--- NOTE | 2016-03-08 17:40 | DRSVH ---
PROCEDURE: X-RAY CHEST ONE VIEW, PORTABLE ([id number]) INDICATIONS: chf history, dyspnea TECHNIQUE: One view of the chest was acquired. COMPARISON: [facility], CR, XR CHEST 2VW, 04/10/2015, 7:57. FINDINGS: Surgical changes and devices: Right shoulder prosthesis. Surgical clips in the left mediastinal bord er. Lungs and pleura: No pleural effusions or pneumothorax. Lungs are clear. Mediastinum: Mediastinal contours appear normal. Heart size is normal. Bones and chest wall: No suspicious bony lesions. Overlying soft tissues appear unremarkable. IMPRESSION: No acute disease. Dictated by: Oli Bull M.D. on 03/08/2016 at 17:36 Approved by: Oli Bull M.D. on 03/08/2016 at 17:39
[2016-03-08 17:53] LABS: BASOPHILS % (AUTO) 0.1 % (0-3); EOSINOPHILS % (AUTO) 0 % (0-5); MONOCYTES % (AUTO) 13.8 % (4-12); Mean Corpuscular Hemoglobin 32.8 pg (27.0-35.0); Mean Corpuscular Volume 96.9 fL (81-100); NEUTROPHILS % (AUTO) 76.9 % (40-74); Platelet Count 562 bil/L (150-400)
[2016-03-08 18:13] LABS: INR 3.03 ratio
[2016-03-08 18:24] LABS: Magnesium 2.1 mg/dL (1.6-2.6)
[2016-03-08 18:26] LABS: TROPONIN T < 0.010 ug/L (0.0-0.011)
[2016-03-08] MEDS ORDERED: predniSONE 20 mg Tablet PO ONE (20:10)
== END 2016-03-08 20:30 | disposition home or self-care (01) ==
LOC: SED 16:34
DX: L50.9 Urticaria, unspecified (principal); J98.01 Acute bronchospasm; I10 Essential (primary) hypertension; J45.909 Unspecified asthma, uncomplicated; J44.1 Chronic obstructive pulmonary disease with (acute) exacerbation; I50.9 Heart failure, unspecified; I48.91 Unspecified atrial fibrillation; E07.9 Disorder of thyroid, unspecified; Z98.890 Other specified postprocedural states; Z87.891 Personal history of nicotine dependence; Z79.01 Long term (current) use of anticoagulants; Z88.8 Allergy status to other drugs, medicaments and biological substances